=== PATIENT | male | born 1950 | race Caucasian/White ===

== ENCOUNTER 2018-02-12 17:03 | Inpatient (IN) | payer OTHER ==
[~2018-02-12] VITALS: Ht 170 cm; Wt 121.3 kg
--- NOTE | ~2018-02-12 | EKG ---
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 : 1950 Requested By: Denise Meyer Order Number: [id number] MD: Erik Vu Measurements Intervals [place]ar Rate: 125 P: ND: QRS: -66 QRSD: 90 T: 23 QT: 335 QTc: 484 Interpretive Statements Atrial fibrillation Ventricular premature complex Abnormal R-wave progression, late transition Inferior infarct, old Compared to ECG 01/13/2002 06:31:42 Atrial fibrillation has replaced sinus bradycardia inferior Q waves are more prominent Electronically Signed On 02-14-2018 8:36:10 CDT by Erik Vu [email or web address] <ELECTRONICALLY SIGNED> By: Erik Vu MD, [facility] 02/14/18 0836 171 11 Erik Vu MD, [facility] /EPI
--- NOTE | ~2018-02-12 | HC ---
[facility] [place] [address] CONSULTATION Name: STAR MAYEN Room #: 218-P ADM IN M.R.#: [id number] Admission: 02/12/18 Attend Phys: Cuco Jacobo MD Discharge: Date of : 54 Report #: [id number] THIS REPORT FOR: //name// CC: Cuco Armstrong REASON FOR CONSULTATION: Atrial fibrillation. HISTORY OF PRESENT ILLNESS: The patient is a 67-year-old gentleman with a history of hypertension, diabetes and iypc-in-alizcokm coronary artery disease by remote angiography in 2002. For the past couple of weeks, he has felt terrible with a cough and a bronchitic type symptoms. Yesterday, he had multiple diarrheal stools. He felt poorly. He although went to work. He, throughout the day, felt worse with profound weakness. He called his who brought him to the Emergency Department where he was found to be in atrial fibrillation. Received Cardizem and has converted to sinus rhythm. He is not sure if he feels better in sinus rhythm or not. He did not have palpitations. He denies chest pain or pressure. He denies heart failure symptoms. MEDICATIONS: Include aspirin, atorvastatin 40 mg daily, insulin and ramipril 10 mg daily. PAST MEDICAL HISTORY: Medical records have been reviewed and include history of diabetes, hypertension, dyslipidemia, right knee arthroscopy and lplu-vr-foqnhjyw coronary artery disease. SOCIAL HISTORY: He is a former smoker, quit 30 years ago. 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 FAMILY HISTORY: Notable for a mom with coronary artery disease. REVIEW OF SYSTEMS: All systems negative except as that noted above. PHYSICAL EXAMINATION: GENERAL: Reveals a pleasant gentleman, in no distress. VITAL SIGNS: Blood pressure is 112/59, heart rate is 67 and regular, respirations unlabored at 18 and 5 feet 11 inches tall. HEENT: There are neither xanthelasma, subcutaneous xanthomata, oral mucosal or digital cyanosis or kyphoscoliosis present. CHEST: Clear to auscultation and percussion. CARDIOVASCULAR: Regular rate and rhythm with normal S1 and S2. No murmurs or rubs. ABDOMEN: Soft and nontender. EXTREMITIES: Without cyanosis, clubbing or edema. Radial pulses are 2+. NEUROLOGICAL: He is alert with a nonfocal exam. LABORATORY DATA: Sodium is 144, potassium 3.7, creatinine 1.[address] [address] CONSULTATION Name: STAR MAYEN Room #: 218-P ADM IN M.R.#: [id number] Admission: 02/12/18 Attend Phys: Cuco Jacobo MD Discharge: Date of : 54 Report #: [id number] 1.2. White count 13.5, hemoglobin 12, hematocrit 36 and platelet count 228. RADIOLOGICAL DATA: EKG: Atrial fibrillation with leftward axis, poor R-wave progression in atrial fibrillation. CT scan demonstrates cholelithiasis, is a left renal exophytic cyst. IMPRESSION: 1. Paroxysmal atrial fibrillation, now sinus rhythm. 2. Hypertension. 3. Diabetes. 4. Moderate coronary artery disease. 5. Diarrheal illness. RECOMMENDATIONS: 1. Change from intravenous to oral Cardizem. 2. Anticoagulant therapy is recommended in light of his elevated CHADS-VASc score. Before starting anticoagulants, I would recommend evaluation of what has been described as a hemorrhagic exophytic renal cyst. 3. Serial cardiac enzymes. 4. Outpatient stress testing. 5. For recurrent atrial fibrillation, consider antiarrhythmic therapy. <ELECTRONICALLY SIGNED> By: Erik Vu MD, FACC 02/14/18 0922 0732 0744 Erik Vu MD, FACC /nt
--- NOTE | ~2018-02-12 | 2DMMODE ---
[facility] [address] [place] [address] 2 D/M-MODE ECHOCARDIOGRAM Name: STAR MAYEN Room #: 218-P ADM IN .R.#: [id number] Admission: 02/12/18 Attend Phys: Cuco Jacobo MD Discharge: Date of : 54 Date of Service: 02/13/18 1213 Report #: [id number] THIS REPORT FOR: //name// APPROVED REPORT Study performed: 02/13/2018 08:30:37 EXAM: Comprehensive 2D, Doppler, and color-flow Echocardiogram Patient Location: Bedside Room #: 218 Status: routine BSA: 2.40 HR: 71 bpm BP: 112/59 mmHg Other Information Study Quality: Good Indications Diabetes Hypertension/HDD 2D Dimensions RVDd: 32.82 mm LVEF(%): 69.85 (>50%) IVSd: 11.32 (7-11mm) LVOT Diam: 25.53 (18-24mm) LVDd: 55.25 mm PWd: 10.84 (7-11mm) Ascending Ao: 34.13 (22-36mm) LVDs: 33.24 (25-40mm) Aortic Root: 33.64 mm IVC: 17.00 mm Smyth's LVEF: 69.85 % Volumes Left Atrial Volume (Systole) Single Plane 4CH: 59.96 mL Single Plane 2CH: 67.13 mL LA ESV Index: 30.00 mL/m2 Aortic Valve AoV Peak Alex.: 1.56 m/s AO Peak Gr.: 9.77 mmHg LVOT Max P.78 mmHg LVOT Max V: 0.97 m/s SARINA Vmax: 3.18 cm2 Mitral Valve E/A Ratio: 2.1 MV Decel. Time: 204.24 ms [facility] [place] [address] 2 D/M-MODE ECHOCARDIOGRAM Name: STAR MAYEN Room #: 218-P [facility] IN .R.#: [id number] Admission: 02/12/18 Attend Phys: Cuco Jacobo MD Discharge: Date of : 54 Date of Service: 02/13/18 1213 Report #: [id number] MV E Max Alex.: 0.96 m/s MV A Alex.: 0.46 m/s MV PHT: 59.23 ms IVRT: 73.82 ms Pulmonary Valve PV Peak Alex.: 1.10 m/s PV Peak Gr.: 4.84 mmHg Pulmonary Vein P Vein S: 0.53 m/s P Vein A: 0.21 m/s P Vein D: 0.43 m/s P Vein A Dur.: 147.6 msec P Vein S/D Ratio: 1.23 Left Ventricle The left ventricle is normal size. There is normal LV segmental wall motion. There is normal left ventricular wall thickness. The left ventricular systolic function is normal. The left ventricular ejection fraction is within the normal range. LVEF is 55-60%. The left ventricular diastolic function is normal. Right Ventricle The right ventricle is normal size. The right ventricular systolic function is normal. Atria The left atrium size is normal. The right atrium size is normal. Aortic Valve The aortic valve is normal in structure. No aortic regurgitation is present. There is no aortic valvular stenosis. Mitral Valve The mitral valve is normal in structure. There is no mitral valve regurgitation noted. No evidence of mitral valve stenosis. Tricuspid Valve The tricuspid valve is normal in structure. There is no tricuspid valve regurgitation noted. Pulmonic Valve The pulmonary valve is normal in structure. There is no pulmonic valvular regurgitation. Great Vessels The aortic root is normal in size. IVC is normal in size and [facility] [address] [place] [address] 2 D/M-MODE ECHOCARDIOGRAM Name: STAR MAYEN Room #: 218-P ADM IN .R.#: [id number] Admission: 02/12/18 Attend Phys: Cuco Jacobo MD Discharge: Date of : 54 Date of Service: 02/13/18 1213 Report #: [id number] collapses with >50% inspiration Pericardium There is no pericardial effusion. <Conclusion> The left ventricular systolic function is normal. There is normal LV segmental wall motion. LVEF is 55-60%. Normal diastolic function The aortic valve is normal in structure. No aortic regurgitation or stenosis The mitral valve is normal in structure. No mitral valve regurgitation Pulmonary artery pressure could not be reliably ascertained There is no pericardial effusion. <ELECTRONICALLY SIGNED> By: Erik Vu MD, FACC 02/13/18 1213 121 121 Erik Vu MD, FACC /INF
[2018-02-12 17:03] VITALS: BP 148/109
[~2018-02-12 17:03] MED LIST: ALTACE10 M1 PO; APIDRA SQ; ASPIRIN325 PO; LANTUS SQ; LIPITOR40 MG PO; MULTIVITAMINS PO; NEXIUM40 MG PO
[2018-02-12 17:31] LABS: ABSOLUTE NEUTROPHILS 17.1 thou/uL (1.4-8.2); BASOPHILS 0.4 % (0.0-2.0); EOSINOPHILS 0.3 % (0.0-3.0); HEMATOCRIT 44.4 % (42.0-52.0); HEMOGLOBIN 14.6 gm/dL (14.0-18.0); LYMPHOCYTES 5.9 % (24.0-44.0); MCH 27.9 pg (26.0-34.0); MCHC 32.8 g/dL (28.0-37.0); MONOCYTES 7.2 % (1.0-8.0); PLATELET COUNT 255 thou/uL (150-400); POLYS 86.2 % (36.0-66.0); RBC 5.23 mil/uL (4.50-6.00); RDW 14.2 % (10.5-14.5); WBC 19.9 thou/uL (4.0-11.0)
[2018-02-12] MEDS ORDERED: NAPROSYN500 MG PO (17:34)
[2018-02-12 17:36] LABS: ANION GAP 14 mmol/L (7-16); BUN 20 mg/dL (7-18); CALCIUM 8.2 mg/dL (8.5-10.1); CHLORIDE 109 mmol/L (98-107); CO2 24 mmol/L (21-32); CREATININE 1.1 mg/dL (0.7-1.3); GLUCOSE 188 mg/dL (74-106); SODIUM 147 mmol/L (136-145)
[2018-02-12 17:45] LABS: ALBUMIN 3.4 g/dL (3.4-5.0); SGOT 32 U/L (15-37); SGPT 44 U/L (30-65); TOTAL BILIRUBIN 0.7 mg/dL (<0.1-1.0); TOTAL PROTEIN 6.4 g/dL (6.4-8.2); TROPONIN-I <0.06 ng/mL (<0.06)
[2018-02-12 19:08] LABS: URINE BLOOD 3+ (Negative); URINE CLARITY CLEAR; URINE COLOR YELLOW; URINE GLUCOSE-RANDOM* TRACE (Negative); URINE KETONES 1+ (Negative); URINE LEUKOCYTES-REFLEX NEGATIVE (Negative); URINE NITRITE-REFLEX NEGATIVE (Negative); URINE PROTEIN (DIPSTICK) 2+ (Negative); URINE SPECIFIC GRAVITY >= 1.030 (1.005-1.035)
[2018-02-12 19:11] LABS: ICTOTEST (BILI CONFIRMATORY) Negative (Negative); URINE BILIRUBIN NEGATIVE (Negative)
[2018-02-12 19:20] LABS: CRYSTALS None Seen /LPF (None Seen); MUCUS >6 Heavy strn/LPF (None Seen); SQUAMOUS 0-3 Few /LPF (0-3); URINE RBC >20 Many /HPF (0-2); URINE WBC-REFLEX 6-15 Few /HPF (0-5)
[2018-02-12 19:21] LABS: AMORPHOUS URATES Moderate /LPF (None Seen); BACTERIA-REFLEX None Seen /HPF (None Seen); COARSE GRANULAR CASTS 4-10 Moderate /LPF (None Seen); HYALINE CASTS >10 Many /LPF (None Seen)
[2018-02-12 20:35] VITALS: BP 91/53
[2018-02-12 20:45] VITALS: BP 120/55
[2018-02-12 21:00] VITALS: BP 119/74
[2018-02-13 05:05] LABS: CALCIUM 7.2 mg/dL (8.5-10.1); CREATININE 1.1 mg/dL (0.7-1.3); POTASSIUM 3.7 mmol/L (3.5-5.1)
[2018-02-13 05:08] LABS: HEMATOCRIT 36.5 % (42.0-52.0); MCH 28.3 pg (26.0-34.0); MCHC 33.7 g/dL (28.0-37.0); MCV 84.2 fL (80.0-100.0); RBC 4.33 mil/uL (4.50-6.00); RDW 14.4 % (10.5-14.5); WBC 13.5 thou/uL (4.0-11.0)
[2018-02-13 05:26] VITALS: BP 112/59
[2018-02-13 06:03] LABS: HEMOGLOBIN 12.3 gm/dL (14.0-18.0)
[2018-02-13 07:20] VITALS: BP 110/55
[2018-02-13 12:25] VITALS: BP 121/63
[2018-02-13 15:19] VITALS: BP 111/56
[2018-02-13 19:35] VITALS: BP 115/53
[2018-02-14 04:48] VITALS: BP 112/65
[2018-02-14 07:19] VITALS: BP 113/61
[2018-02-14] MEDS ORDERED: CARDIZEM CD240 MG PO (10:09)
[2018-02-14] MEDS ORDERED: ELIQUIS5 MG PO (10:09)
[2018-02-14 12:39] VITALS: BP 126/65
[2018-02-14 12:54] VITALS: BP 113/61
== END 2018-02-14 15:35 | disposition home or self-care (01) | DRG 309 ==
LOC: ER 17:03 → EROBS 20:13 → 2N 20:13 → ENTRNSPT 02-14 15:05 → EDTRNSPTSTS 02-14 15:07 → 2N 02-14 15:35
PROVIDERS: Nurse Practitioner Family; Physician Assistant
DX: I48.0 Paroxysmal atrial fibrillation (principal); R65.10 Systemic inflammatory response syndrome (SIRS) of non-infectious origin without acute organ dysfunction; Z68.41 Body mass index [BMI] 40.0-44.9, adult; E11.9 Type 2 diabetes mellitus without complications; E78.00 Pure hypercholesterolemia, unspecified; E66.9 Obesity, unspecified; E87.6 Hypokalemia; I10 Essential (primary) hypertension; E78.5 Hyperlipidemia, unspecified; I25.10 Atherosclerotic heart disease of native coronary artery without angina pectoris; N28.89 Other specified disorders of kidney and ureter; R31.9 Hematuria, unspecified; N20.0 Calculus of kidney; Z88.1 Allergy status to other antibiotic agents; Z88.0 Allergy status to penicillin; Z87.891 Personal history of nicotine dependence; Z82.49 Family history of ischemic heart disease and other diseases of the circulatory system; Z79.899 Other long term (current) drug therapy
CPT/HCPCS: 10081

== ENCOUNTER → 2019-12-07 | Outpatient (CLI) | payer OTHER ==
[~2019-12-07] MED LIST changes: +CARDIZEM CD240 MG PO; +ELIQUIS5 MG PO; +NAPROSYN500 MG PO
== END ==
LOC: CAT 08:36
DX: K80.80 Other cholelithiasis without obstruction (principal); N20.0 Calculus of kidney; R19.04 Left lower quadrant abdominal swelling, mass and lump; N42.89 Other specified disorders of prostate; M47.814 Spondylosis without myelopathy or radiculopathy, thoracic region; I25.10 Atherosclerotic heart disease of native coronary artery without angina pectoris

== ENCOUNTER 2019-12-18 09:15 | Day surgery (SDC) | payer OTHER ==
[~2019-12-18] VITALS: Ht 180.3 cm; Wt 126.1 kg
--- NOTE | ~2019-12-18 | O ---
[facility] [place] [address] OPERATIVE REPORT Name: STAR MAYEN Room #: 447-P REG [facility]#: [id number] Admission: 12/18/19 Attend Phys: Alcon Robertson MD Discharge: Date of : 54 Report #: [id number] THIS REPORT FOR: cc: Mohamud Armstrong,Alcon Belcher MD ~ CC: Alcon Armstrong MD DATE OF SERVICE: 12/18/2019 PREOPERATIVE DIAGNOSES: 1. Cholecystitis with cholelithiasis. 2. Mass in the left abdomen/lipoma. POSTOPERATIVE DIAGNOSES: 1. Cholecystitis with cholelithiasis. 2. Mass in the left abdomen/lipoma. PROCEDURES PERFORMED: 1. Laparoscopic cholecystectomy. 2. Excision of left abdominal mass in the deep subcutaneous tissue measuring 6 cm. ANESTHESIA: General. SURGEON: Alcon Robertson MD COMPLICATIONS: None. ESTIMATED BLOOD LOSS: 10 mL. PROCEDURE NOTE: With the patient under general anesthesia, abdomen was prepped and draped in sterile fashion. IV antibiotic was administered. Timeout was performed. A 0.25% Marcaine was used to anesthetize the skin and subcutaneous tissue. A transverse incision was made about 2 inches above the umbilicus. The fascia was identified. The fascia was opened transversely. An 0 Vicryl suture placed on the fascia edges for retraction. Veress needle was then placed through the peritoneum. Abdominal cavity was insufflated with CO2 without difficulty. After creating pneumoperitoneum pressure of 15, 11-mm trocar was placed through the peritoneum. This was placed under visualization. No harm to underlying tissue. Three 5-mm trocars were placed, two in the right upper quadrant and one in the right epigastrium. The liver is fairly high, but the gallbladder's view was good. The gallbladder fundus was lifted cephalad. This exposed the rest of the gallbladder. The fatty tissue just below the neck of [address] [address] OPERATIVE REPORT Name: STAR MAYEN Room #: 447-P [facility]#: [id number] Admission: 12/18/19 Attend Phys: Alcon Robertson MD Discharge: Date of : 54 Report #: [id number] the gallbladder was dissected free. Dissection was carried out with cautery and blunt dissection. The lateral peritoneum was freed first. The medial was then freed. Cystic duct was then found. This cystic duct was small size. This was followed to the gallbladder. A clip was placed at the cystic duct-gallbladder junction. Opening was made in the cystic duct. Cholangiogram catheter was placed. The fluoroscopic cholangiogram is normal. The cholangiogram catheter in the cystic duct, no harm to the common duct was visualized. There was no filling defect in the common duct. Dye is seen in the duodenum. The cholangiogram catheter was then removed. The proximal cystic duct was then clipped x2 and then divided. The cystic artery was then identified adjacent to this area just slightly cephalad. This was easily isolated, clipped x2 proximally and 1 distally and then divided. Gallbladder was freed from the liver bed using cautery. Gallbladder was placed in a specimen bag. The gallbladder was decompressed and the gallbladder then came out through the fascia defect. This was at the umbilical area. A 5-mm scope was placed in the epigastrium to facilitate this. I also looked at the left abdomen below the 11 mm trocar. There was no hernia identified. Irrigation was performed, hemostasis is excellent. CO2 was evacuated. Trocars were then removed. The left abdominal mass was then marked with a marking pen, and a transverse incision about 5 cm was made over this. After dissecting through the skin and subcutaneous tissue, the fat did have a lobulated appearance. This was dissected free from the surrounding normal fat. Posteriorly, a little bit of the fat was left capsulated. This was lifted off the posterior fatty tissue. Specimen was about 6 cm in size, about 2.5 cm thickness. Hemostasis obtained. Subcutaneous tissue was closed with 4-0 PDS. Skin was closed with 5-0 PDS. The fascia defect and 11 mm trocar site was closed with [id number] 0 Vicryl x2. Skin was irrigated, closed with 5-0 PDS. Steri-Strip, Band-Aids applied. A 4 x 4, OpSite was placed over the small incision site. The patient tolerated the procedure well. By: 1113 1124 Alcon Robertson MD /nt
[~2019-12-18 09:15] MED LIST changes: +ALTACE10 MG PO; +DILTIAZEM ER180 M2 PO; +FUROSEMIDE 20 M20 MG PO; +HUMALOG100 UNIT/1 SUBQ; +NEURONTIN300 MG PO; +OMEPRAZOLE 20 M20 M1 PO; +SLOW RELEASE I250 M1 PO; +TURMERIC500 M2 PO; +TYLENOL EXTRA500 MG PO
[2019-12-18 09:56] LABS: HEMATOCRIT 41.2 % (42.0-52.0); HEMOGLOBIN 13.7 gm/dL (14.0-18.0)
[2019-12-18 11:14] VITALS: BP 129/75
--- NOTE | 2019-12-18 14:36 | H ---
[facility] [place] [address] HISTORY AND PHYSICAL Name: STAR MAYEN Room #: [facility] M..#: [id number] Admission: 12/18/19 Attend Phys: Alcon Robertson MD Discharge: Date of : 54 Report #: [id number] THIS REPORT FOR: cc: Mohamud Armstrong,Alcon Belcher MD ~ CC: Alcon Armstrong MD PREOPERATIVE DIAGNOSIS: Cholecystitis with cholelithiasis. Left abdominal lump, left abdominal mass. HISTORY OF PRESENT ILLNESS: The patient is a 69-year-old who went to see Dr. Armstrong for a yearly exam. He mentioned a lump that he noticed in the left mid abdomen lateral to the umbilicus. The lump has been there for about 6 months. He has discomfort here, but no severe pain. The patient did have an umbilical hernia repair done by myself in 2010. The patient says that this does not feel like a hernia. No pain with lifting. The patient had a CAT scan performed, which showed stable renal calculus. No definite mass detected on the left side and no hernia identified. CT scan was done to rule out the hernia. Due to the patient's size, it was difficult to do a thorough exam. The patient had multiple layering gallstones identified. Because he is a diabetic, he was sent to see me for possible cholecystectomy. No nausea or vomiting. No bloating. No diarrhea. The patient did have few nights ago minor abdominal pain located in the right upper quadrant that lasted a few minutes. He has a history of GERD for 15 years. He has had an EGD and colonoscopy in the past. Does have kidney stones which are stable. He is not aware of any family history of gallbladder disease. Because of diabetes and probably having mild symptoms from the gallbladder disease, he is recommended to have laparoscopic cholecystectomy. The patient wishes to avoid any complications from the gallbladder disease because of his diabetes and wishes to proceed. PAST MEDICAL HISTORY: The patient has history of atrial fibrillation diagnosed 2017. He was hospitalized for about [address] 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 History of diabetes and high blood pressure. MEDICATIONS: Omeprazole 40 mg, Eliquis 5 mg twice a day, Cartia 240 mg once a day, ramipril, atorvastatin, Humalog 30 units 3 times a day. ALLERGIES: PENICILLIN and Z-TRISTIN. These causes rash and itching. PAST SURGICAL HISTORY: Umbilical hernia repair 2010. FAMILY HISTORY: There is family history of heart disease in mother. Family history of breast cancer in sister. [address] [address] HISTORY AND PHYSICAL Name: STAR MAYEN Room #: [facility] M..#: [id number] Admission: 12/18/19 Attend Phys: Alcon Robertson MD Discharge: Date of : 54 Report #: [id number] SOCIAL HISTORY: He is a former smoker, quit 1986. Has about 1 alcoholic drink every other night. REVIEW OF SYSTEMS: No chest pain, shortness of breath or palpitation. PHYSICAL EXAMINATION: GENERAL: The patient is alert and oriented, well developed, well nourished, obese. HEENT: Pupils react to light. Extraocular muscles are intact. Oropharynx is clear. NECK: Soft, supple, no masses, no JVD. LUNGS: Clear to auscultation. HEART: Regular rate and rhythm. No murmur or gallop. ABDOMEN: Soft, nontender. No mass. No hernia detected. He has a mass that is about 3-4 cm lateral to the umbilicus on the left side, probable lipoma. EXTREMITIES: No cyanosis, clubbing or edema. IMPRESSION: The patient with gallstones. History of diabetes, on insulin. He did have some pain a couple of nights ago in the right upper quadrant. The patient is recommended to undergo laparoscopic cholecystectomy. The patient understands the risk of common bile duct injury, bile leak. Risk of bleeding, infection. The patient wished to proceed. We will look for hernia laparoscopically. Possibly remove the mass at the time of surgery. <ELECTRONICALLY SIGNED> By: Alcon Robertson MD 12/18/19 1436 0852 0921 Alcon Robertson MD /nt
[2019-12-18 15:00] VITALS: BP 108/59
[2019-12-18 15:30] VITALS: BP 111/51
--- NOTE | 2019-12-18 17:01 | NUR ---
69 YO MALE TRANFERED FROM PACU TO 447. A&OX4. IV IN R HAND INFUSING LR X 1 LITER. LAP ERMA SITES ARE COVERED WITH BANDAIDS X4 WITH C/D/I 2X2 GAUZE TO LEFT OF UMBILICUS. PT TOLERATING JELLO AND JUICE, DENIES PAIN AT THIS TIME.ORIENTED PT TO ROOM AND CALL LIGHT.
[2019-12-18 19:25] VITALS: BP 126/72
[2019-12-19 04:00] VITALS: BP 128/74
--- NOTE | 2019-12-19 04:26 | NUR ---
RECIEVED CARE OF THIS PATIENT AT 1900. PATIENT ALERT AND ORIENTED X4. UP AD SAVITA. HAD 4 SURGICAL SITES ON CARL, DRESSING INTACT. PATIENT HAS VOIDED. DENIES PAIN. SLEPT MOST OF THE NIGHT.
[2019-12-19 08:21] VITALS: BP 137/74
[2019-12-19] MEDS ORDERED: NORCO 5-325 TA1 EAC1 PO (12:44)
[2019-12-19 13:22] VITALS: BP 137/74
--- NOTE | 2019-12-19 13:50 | NUR ---
PT CARE ASSUMED AT 0700. A&Ox4. ACHS WITH COVERAGE NEEDED. 5 LAPSITES TENDER WITH NO REDNESS OR EDEMA. PT IS PASSING GAS. CPAP FROM HOME. SENT BACK HOME WITH PATIENT. IV REMOVED. PT NOT NEEDING ANY PAIN MEDICATION MORE THEN HIS SCHEDULED TYLENOL. UP AT SAVITA IN THE ROOM. CALL LIGHT IN REACH. WILL CONTINUE TO MONITOR. DISCHARGE INSTRUCTIONS GIVEN AND PT DISCHARGED TO HOME WITH DAUGHTER.
--- NOTE | 2019-12-22 18:08 | PATH ---
[facility] [address] [place] [address] PATHOLOGY RPT PROCEDURE Name: LAMONTESTAR NEFF Room #: DEP [facility] M.R.#: [id number] Admission: 12/18/19 Date of : 54 Discharge: 12/19/19 Report #: [id number] Path Case #: [id number] [facility] Accession Number: [id number] . 01 Material submitted: . PART A: gallbladder - GALLBLADDER PART B: abdomen - LEFT ABDOMEN MASS-LIPOMA. Modifiers: left . 01 Clinical history: . Cholecystitis with cholelithiasis; left abdominal lump; left abdominal mass . 02 Diagnosis: A. Gallbladder, cholecystectomy: - Mild chronic cholecystitis. - Cholelithiasis. . B. Mature adipose tissue, left abdomen mass/lipoma, excision: - Compatible with a lipoma. (IUV:danay; 12/22/2019) . . . . . . . . . . . . S 12/22/2019 1424 Local . 02 Electronically signed: . Yanci Damon MD, Pathologist NPI- [id number] . 01 Gross description: . A. The specimen is received in formalin, labeled "Star Mayen, gallbladder". Received is a previously opened gallbladder measuring 8.4 x 2.7 x 1.2 cm in greatest dimensions displaying a adipose covered serosal surface. Opening the specimen reveals a velvety, pink-lindquist mucosa with a gallbladder wall thickness of 0.1 cm. Calculi are present displaying a black and nodular appearance, and no masses or lesions are noted grossly. System Development Engineer sections, to include the proximal margin, are submitted in cassette A1. [address] [address] PATHOLOGY RPT PROCEDURE Name: STAR MAYEN Room #: DEP [facility].#: [id number] Admission: 12/18/19 Date of : 54 Discharge: 12/19/19 Report #: [id number] Path Case #: [id number] . B. The specimen is received in formalin, labeled "Star Mayen, left abdomen mass/lipoma". Received is a segment of yellow-lindquist lobulated tissue measuring 6.3 x 5.0 x 2.2 cm in greatest dimensions. Sectioning reveals bright yellow cut surfaces with no grossly distinct nodules or lesions. The specimen is submitted representatively in cassette B1 and B2. (CAA; 12/18/2019) QAC/QAC 12/18/2019 1647 Local . 02 Pathologist provided ICD-10: K80.10, D17.1 . 02 CPT . 801563, 857316 Specimen Comment: A courtesy copy of this report has been sent to [phone], [phone] Specimen Comment: [id number] Specimen Comment: Report sent to / DR PEGUERO Performed at: [address], [place], [place] [id number] MD Bao Napier MD Phone: [phone] Performed at: [address] [id number] MD Yanci Damon MD Phone: [phone]
== END 2019-12-19 13:53 | disposition home or self-care (01) ==
LOC: OR 09:15 → 4S 15:06 → OR 17:43
PROVIDERS: Anesthesiology
DX: K80.10 Calculus of gallbladder with chronic cholecystitis without obstruction (principal); D17.1 Benign lipomatous neoplasm of skin and subcutaneous tissue of trunk; I10 Essential (primary) hypertension; E11.9 Type 2 diabetes mellitus without complications; I48.91 Unspecified atrial fibrillation; Z98.890 Other specified postprocedural states; Z79.899 Other long term (current) drug therapy; Z11.59 Encounter for screening for other viral diseases; Z87.891 Personal history of nicotine dependence; Z88.0 Allergy status to penicillin; Z88.8 Allergy status to other drugs, medicaments and biological substances; Z80.3 Family history of malignant neoplasm of breast; Z82.49 Family history of ischemic heart disease and other diseases of the circulatory system
CPT/HCPCS: 10102; 50010; 50101; 50249; 50411; 50555; 50558; 51489; 52265; 53307; 53310; 53312; 55245; 55317; 56462; 56525; 56526; 62110; 62900; 70005